=== PATIENT | male | born 1935 | race Caucasian/White ===

== ENCOUNTER 2018-09-22 21:17 | Inpatient (IN) ==
[2018-09-22] MEDS ORDERED: ASPIRIN 325 MG TABLET PO STA (21:52)
[2018-09-22 22:11] LABS: Basophils # 0.1 10*3/uL (0.0-0.2); Basophils % 0.9 % (0.0-0.8); Eosinophils # 0.2 10*3/uL (0.0-0.87); Eosinophils % 2.8 % (0.00-10.9); Hematocrit 39.1 VOL% (42.0-52.0); Hemoglobin 12.6 GM/DL (14.0-18.0); Immature Granulocytes % 0.4 %; Immature Granulocytes Absolute 0.03 #; Lymphocytes # 1.9 10*3/uL (1.4-4.0); Lymphocytes % 28.4 % (21.2-54.2); Mean Corpuscular HGB Conc 32.2 GM/DL (32-36); Mean Corpuscular Hemoglobin 33 PG (27-34); Mean Corpuscular Volume 101.3 FL (87-102); Mean Platelet Volume 10.4 FL (9.6-12.0); Monocytes # 0.5 10*3/uL (0.11-0.8); Monocytes % 7.6 % (1.7-12.7); Neutrophils # 4.1 10*3/uL (1.4-7.4); Neutrophils % 59.9 % (38.7-73.9); Platelet Count 143 T/CUMM (130-400); Red Blood Count 3.86 MC/CUMM (3.8-5.5); Red Cell Distribution Width 14.2 % (9.3-17.3); White Blood Count 6.8 T/CUMM (4-12)
[2018-09-22 22:17] LABS: INR 1.2; PT Patient Result 12.8 SECS; Partial Thromboplastin Time 25.8 SECS (0-40)
[2018-09-22 22:23] LABS: Albumin 2.8 G/DL (3.4-5.0); Bilirubin,Total 0.6 MG/DL (0.2-1.0); Calcium 8.6 MG/DL (8.5-10.1); Osmolality,Calculated 286.3 MOS/KG (273-304); Potassium 3.8 MMOL/L (3.5-5.1); Total Protein 5.7 G/DL (6.4-8.3)
[2018-09-23] MEDS ORDERED: MAGNESIUM SULF RIDER 1 GM in PREMIX 1 EACH IV STA (00:33)
[2018-09-23] MEDS ORDERED: BISACODYL 5 MG TABLET PO PRN (00:40)
[2018-09-23] MEDS ORDERED: MAGNESIUM SULF RIDER 4 GM in PREMIX 1 EACH IV PRN (00:40)
[2018-09-23] MEDS ORDERED: MORPHINE 4 MG/1 ML VIAL IV PRN (00:40)
[2018-09-23] MEDS ORDERED: MAGNESIUM SULF RIDER 2 GM in PREMIX 1 EACH IV PRN (00:40)
[2018-09-23] MEDS ORDERED: NICOTINE 21 MG/24 HR PATCH TRANSDERM PRN (00:40)
[2018-09-23] MEDS ORDERED: ONDANSETRON 4 MG/2 ML VIAL IV PRN (00:40)
[2018-09-23 02:06] LABS: Risk Ratio 3.31
[2018-09-23] MEDS ORDERED: LORazepam 2 MG/1 ML VIAL ONE (03:38)
[2018-09-23] MEDS ORDERED: LORazepam 2 MG/1 ML VIAL IV STA (03:50)
[2018-09-23] MEDS: LEVOTHYROXINE 125 MCG TABLET PO SCH (07:58)
[2018-09-23] MEDS: LORazepam 2 MG/1 ML VIAL IV PRN ×2 (07:58→23:52)
[2018-09-23] MEDS ORDERED: FOSPHENYTOIN 1,000 MG.PE in SODIUM CHLORIDE 0.9% 250 ML IV ONE (12:26)
[2018-09-23] MEDS ORDERED: PHENYTOIN ER 100 MG CAPSULE PO ONE (12:36)
[2018-09-23] MEDS ORDERED: FOSPHENYTOIN 500 MG.PE/10 ML VIAL ONE (12:37)
[2018-09-23] MEDS: PANTOPRAZOLE 40 MG TABLET PO SCH (12:50)
[2018-09-23] MEDS: PHENYTOIN ER 100 MG CAPSULE PO SCH ×2 (12:52→21:09)
[2018-09-23] MEDS: MAGNESIUM SULFATE 1 GM/2 ML VIAL IM SCH ×2 (16:42→21:10)
[2018-09-23] MEDS ORDERED: cloNIDine 0.1 MG TABLET PO PRN (18:19)
[2018-09-23] MEDS ORDERED: METOPROLOL TARTRATE 25 MG TABLET PO SCH (21:00)
[2018-09-23] MEDS: METOPROLOL TARTRATE 50 MG TABLET PO SCH (21:09)
[2018-09-23] MEDS: ATORVASTATIN 40 MG TABLET PO SCH (21:09)
[2018-09-24] MEDS: PHENYTOIN ER 100 MG CAPSULE PO SCH ×4 (05:53→17:05)
[2018-09-24] MEDS: LEVOTHYROXINE 125 MCG TABLET PO SCH ×2 (05:53→06:15)
[2018-09-24 09:43] LABS: Basophils # 0.1 10*3/uL (0.0-0.2); Basophils % 1.2 % (0.0-0.8); Eosinophils # 0.2 10*3/uL (0.0-0.87); Eosinophils % 3.5 % (0.00-10.9); Hematocrit 39.7 VOL% (42.0-52.0); Immature Granulocytes % 0.3 %; Immature Granulocytes Absolute 0.02 #; Lymphocytes # 1.6 10*3/uL (1.4-4.0); Lymphocytes % 23.2 % (21.2-54.2); Mean Corpuscular HGB Conc 32.7 GM/DL (32-36); Mean Corpuscular Hemoglobin 33 PG (27-34); Monocytes # 0.5 10*3/uL (0.11-0.8); Monocytes % 7.8 % (1.7-12.7); Neutrophils # 4.4 10*3/uL (1.4-7.4); Platelet Count 146 T/CUMM (130-400); Red Blood Count 3.93 MC/CUMM (3.8-5.5); Red Cell Distribution Width 14.2 % (9.3-17.3); White Blood Count 6.9 T/CUMM (4-12)
[2018-09-24 10:11] LABS: Calcium 8.2 MG/DL (8.5-10.1); Osmolality,Calculated 281.3 MOS/KG (273-304); Potassium 3.8 MMOL/L (3.5-5.1)
[2018-09-24] MEDS: METOPROLOL TARTRATE 50 MG TABLET PO SCH ×2 (10:50→21:18)
[2018-09-24] MEDS: PANTOPRAZOLE 40 MG TABLET PO SCH (10:51)
[2018-09-24] MEDS: LACOSAMIDE 50 MG TABLET PO SCH (21:17)
[2018-09-24] MEDS: ATORVASTATIN 40 MG TABLET PO SCH (21:18)
[2018-09-25] MEDS: PHENYTOIN ER 100 MG CAPSULE PO SCH ×2 (01:15→09:02)
[2018-09-25 05:18] LABS: Basophils # 0.1 10*3/uL (0.0-0.2); Basophils % 0.7 % (0.0-0.8); Eosinophils # 0.3 10*3/uL (0.0-0.87); Eosinophils % 4.2 % (0.00-10.9); Hematocrit 39.6 VOL% (42.0-52.0); Hemoglobin 12.7 GM/DL (14.0-18.0); Immature Granulocytes % 0.3 %; Immature Granulocytes Absolute 0.02 #; Lymphocytes # 2.1 10*3/uL (1.4-4.0); Lymphocytes % 28.6 % (21.2-54.2); Mean Corpuscular HGB Conc 32.1 GM/DL (32-36); Mean Corpuscular Hemoglobin 33 PG (27-34); Mean Corpuscular Volume 101.5 FL (87-102); Mean Platelet Volume 10.4 FL (9.6-12.0); Monocytes # 0.8 10*3/uL (0.11-0.8); Monocytes % 10.5 % (1.7-12.7); Neutrophils % 55.7 % (38.7-73.9); Platelet Count 158 T/CUMM (130-400); Red Cell Distribution Width 14.3 % (9.3-17.3); White Blood Count 7.2 T/CUMM (4-12)
[2018-09-25 05:24] LABS: Calcium 8.2 MG/DL (8.5-10.1); Osmolality,Calculated 279.4 MOS/KG (273-304); Potassium 3.8 MMOL/L (3.5-5.1)
[2018-09-25] MEDS: LEVOTHYROXINE 125 MCG TABLET PO SCH (07:07)
[2018-09-25 08:27] LABS: Troponin I 0.059 NG/ML (0.00-0.045)
[2018-09-25] MEDS: METOPROLOL TARTRATE 50 MG TABLET PO SCH ×2 (09:01→20:48)
[2018-09-25] MEDS: PANTOPRAZOLE 40 MG TABLET PO SCH (09:02)
[2018-09-25] MEDS: LACOSAMIDE 50 MG TABLET PO SCH (09:02)
[2018-09-25] MEDS: PHENYTOIN 100 MG/2 ML VIAL IV SCH (17:18)
[2018-09-25] MEDS: ATORVASTATIN 40 MG TABLET PO SCH (20:48)
[2018-09-25] MEDS: LACOSAMIDE INJ 150 MG in SODIUM CHLORIDE 0.9% 50 ML IV SCH (20:57)
[2018-09-26] MEDS: PHENYTOIN 100 MG/2 ML VIAL IV SCH ×2 (00:15→08:32)
[2018-09-26 06:10] LABS: Basophils # 0.1 10*3/uL (0.0-0.2); Basophils % 0.8 % (0.0-0.8); Eosinophils # 0.2 10*3/uL (0.0-0.87); Eosinophils % 2.5 % (0.00-10.9); Hematocrit 40.8 VOL% (42.0-52.0); Hemoglobin 13.3 GM/DL (14.0-18.0); Immature Granulocytes % 0.4 %; Immature Granulocytes Absolute 0.03 #; Lymphocytes # 2.1 10*3/uL (1.4-4.0); Lymphocytes % 26.4 % (21.2-54.2); Mean Corpuscular HGB Conc 32.6 GM/DL (32-36); Mean Corpuscular Hemoglobin 33 PG (27-34); Mean Corpuscular Volume 99.8 FL (87-102); Mean Platelet Volume 10.5 FL (9.6-12.0); Monocytes # 0.7 10*3/uL (0.11-0.8); Monocytes % 8.6 % (1.7-12.7); Neutrophils # 4.8 10*3/uL (1.4-7.4); Neutrophils % 61.3 % (38.7-73.9); Platelet Count 167 T/CUMM (130-400); Red Blood Count 4.09 MC/CUMM (3.8-5.5); Red Cell Distribution Width 14.1 % (9.3-17.3); White Blood Count 7.9 T/CUMM (4-12)
[2018-09-26] MEDS: LEVOTHYROXINE 125 MCG TABLET PO SCH (06:21)
[2018-09-26 06:37] LABS: Calcium 8.4 MG/DL (8.5-10.1); Osmolality,Calculated 279.4 MOS/KG (273-304); Potassium 3.8 MMOL/L (3.5-5.1)
[2018-09-26] MEDS: METOPROLOL TARTRATE 50 MG TABLET PO SCH ×2 (09:37→21:17)
[2018-09-26] MEDS: PANTOPRAZOLE 40 MG TABLET PO SCH (09:37)
[2018-09-26] MEDS: LACOSAMIDE INJ 150 MG in SODIUM CHLORIDE 0.9% 50 ML IV SCH ×2 (09:54→21:20)
[2018-09-26] MEDS ORDERED: MAGNESIUM SULF RIDER 2 GM in PREMIX 1 EACH IV ONE (10:00)
[2018-09-26] MEDS ORDERED: POTASSIUM CHLORIDE 20 MEQ TABLET PO PRN (10:43)
[2018-09-26] MEDS ORDERED: VALPROIC ACID INJ 1,000 MG in SODIUM CHLORIDE 0.9% 100 ML IV ONE (16:00)
[2018-09-26] MEDS: PHENYTOIN INJ 100 MG in SODIUM CHLORIDE 0.9% 100 ML IV SCH (18:23)
[2018-09-26] MEDS: ATORVASTATIN 40 MG TABLET PO SCH (21:17)
[2018-09-26] MEDS: VALPROIC ACID INJ 500 MG in SODIUM CHLORIDE 0.9% 100 ML IV SCH (23:55)
[2018-09-27] MEDS: PHENYTOIN INJ 100 MG in SODIUM CHLORIDE 0.9% 100 ML IV SCH ×3 (02:23→21:56)
[2018-09-27 04:50] LABS: Basophils # 0.1 10*3/uL (0.0-0.2); Basophils % 0.9 % (0.0-0.8); Eosinophils # 0.2 10*3/uL (0.0-0.87); Eosinophils % 2.6 % (0.00-10.9); Hematocrit 42.3 VOL% (42.0-52.0); Hemoglobin 13.5 GM/DL (14.0-18.0); Immature Granulocytes % 0.1 %; Immature Granulocytes Absolute 0.01 #; Lymphocytes # 2.3 10*3/uL (1.4-4.0); Lymphocytes % 32.4 % (21.2-54.2); Mean Corpuscular HGB Conc 31.9 GM/DL (32-36); Mean Corpuscular Hemoglobin 32 PG (27-34); Mean Corpuscular Volume 100.7 FL (87-102); Mean Platelet Volume 10.2 FL (9.6-12.0); Monocytes # 0.6 10*3/uL (0.11-0.8); Monocytes % 8.6 % (1.7-12.7); Neutrophils # 3.9 10*3/uL (1.4-7.4); Neutrophils % 55.4 % (38.7-73.9); Platelet Count 156 T/CUMM (130-400); Red Cell Distribution Width 14.2 % (9.3-17.3)
[2018-09-27 05:11] LABS: Calcium 8.4 MG/DL (8.5-10.1); Osmolality,Calculated 285.1 MOS/KG (273-304); Potassium 4.3 MMOL/L (3.5-5.1)
[2018-09-27] MEDS: LEVOTHYROXINE 125 MCG TABLET PO SCH (07:11)
[2018-09-27] MEDS: VALPROIC ACID INJ 500 MG in SODIUM CHLORIDE 0.9% 100 ML IV SCH ×3 (09:01→23:36)
[2018-09-27] MEDS: METOPROLOL TARTRATE 50 MG TABLET PO SCH ×2 (09:06→21:25)
[2018-09-27] MEDS: PANTOPRAZOLE 40 MG TABLET PO SCH (09:06)
[2018-09-27] MEDS: LACOSAMIDE INJ 150 MG in SODIUM CHLORIDE 0.9% 50 ML IV SCH ×2 (10:09→21:16)
[2018-09-27] MEDS: LORazepam 2 MG/1 ML VIAL IV PRN (13:38)
[2018-09-27] MEDS: ATORVASTATIN 40 MG TABLET PO SCH (21:25)
[2018-09-28] MEDS: PHENYTOIN INJ 100 MG in SODIUM CHLORIDE 0.9% 100 ML IV SCH ×3 (04:54→20:54)
[2018-09-28 05:42] LABS: Basophils # 0.1 10*3/uL (0.0-0.2); Eosinophils # 0.3 10*3/uL (0.0-0.87); Eosinophils % 4.1 % (0.00-10.9); Hemoglobin 13.2 GM/DL (14.0-18.0); Immature Granulocytes % 0.1 %; Immature Granulocytes Absolute 0.01 #; Lymphocytes # 1.6 10*3/uL (1.4-4.0); Lymphocytes % 23.7 % (21.2-54.2); Mean Corpuscular HGB Conc 32.2 GM/DL (32-36); Mean Corpuscular Hemoglobin 32 PG (27-34); Mean Corpuscular Volume 99.5 FL (87-102); Mean Platelet Volume 10.1 FL (9.6-12.0); Monocytes # 0.6 10*3/uL (0.11-0.8); Monocytes % 9.1 % (1.7-12.7); Neutrophils # 4.3 10*3/uL (1.4-7.4); Platelet Count 175 T/CUMM (130-400); Red Blood Count 4.12 MC/CUMM (3.8-5.5); Red Cell Distribution Width 14.3 % (9.3-17.3); White Blood Count 6.9 T/CUMM (4-12)
[2018-09-28] MEDS: LEVOTHYROXINE 125 MCG TABLET PO SCH (06:08)
[2018-09-28 06:09] LABS: Calcium 8.4 MG/DL (8.5-10.1); Osmolality,Calculated 284.1 MOS/KG (273-304)
[2018-09-28] MEDS ORDERED: MAGNESIUM SULF RIDER 2 GM in PREMIX 1 EACH IV ONE (09:00)
[2018-09-28] MEDS: VALPROIC ACID INJ 500 MG in SODIUM CHLORIDE 0.9% 100 ML IV SCH ×2 (09:12→16:48)
[2018-09-28] MEDS: LACOSAMIDE INJ 150 MG in SODIUM CHLORIDE 0.9% 50 ML IV SCH ×2 (09:13→21:57)
[2018-09-28] MEDS: METOPROLOL TARTRATE 50 MG TABLET PO SCH ×2 (09:13→20:55)
[2018-09-28] MEDS: PANTOPRAZOLE 40 MG TABLET PO SCH (09:13)
[2018-09-28] MEDS: LORazepam 2 MG/1 ML VIAL IV PRN (12:23)
[2018-09-28] MEDS: PHENobarbital 30 MG TABLET PO SCH (20:54)
[2018-09-28] MEDS: ATORVASTATIN 40 MG TABLET PO SCH (20:55)
[2018-09-29] MEDS: VALPROIC ACID INJ 500 MG in SODIUM CHLORIDE 0.9% 100 ML IV SCH ×4 (00:20→23:36)
[2018-09-29] MEDS: PHENYTOIN INJ 100 MG in SODIUM CHLORIDE 0.9% 100 ML IV SCH ×3 (05:13→21:54)
[2018-09-29] MEDS: LEVOTHYROXINE 125 MCG TABLET PO SCH (06:31)
[2018-09-29] MEDS: PHENobarbital 30 MG TABLET PO SCH ×2 (08:28→21:20)
[2018-09-29] MEDS: PANTOPRAZOLE 40 MG TABLET PO SCH (08:28)
[2018-09-29] MEDS: METOPROLOL TARTRATE 50 MG TABLET PO SCH ×2 (08:28→21:20)
[2018-09-29] MEDS: LACOSAMIDE INJ 150 MG in SODIUM CHLORIDE 0.9% 50 ML IV SCH ×2 (08:35→21:17)
[2018-09-29] MEDS: ACETAMINOPHEN 325 MG TABLET PO PRN (21:20)
[2018-09-29] MEDS: ATORVASTATIN 40 MG TABLET PO SCH (21:20)
[2018-09-30] MEDS: PHENYTOIN INJ 100 MG in SODIUM CHLORIDE 0.9% 100 ML IV SCH ×3 (06:33→20:46)
[2018-09-30] MEDS: LEVOTHYROXINE 125 MCG TABLET PO SCH (06:34)
[2018-09-30] MEDS: PHENobarbital 30 MG TABLET PO SCH ×2 (08:25→20:27)
[2018-09-30] MEDS: METOPROLOL TARTRATE 50 MG TABLET PO SCH ×2 (08:25→20:27)
[2018-09-30] MEDS: VALPROIC ACID INJ 500 MG in SODIUM CHLORIDE 0.9% 100 ML IV SCH ×3 (08:25→17:28)
[2018-09-30] MEDS: PANTOPRAZOLE 40 MG TABLET PO SCH (08:25)
[2018-09-30 08:49] LABS: Basophils # 0.1 10*3/uL (0.0-0.2); Basophils % 0.7 % (0.0-0.8); Eosinophils # 0.3 10*3/uL (0.0-0.87); Eosinophils % 3.8 % (0.00-10.9); Hematocrit 42.8 VOL% (42.0-52.0); Immature Granulocytes % 0.4 %; Immature Granulocytes Absolute 0.03 #; Lymphocytes # 1.5 10*3/uL (1.4-4.0); Lymphocytes % 20.4 % (21.2-54.2); Mean Corpuscular HGB Conc 32.7 GM/DL (32-36); Mean Corpuscular Hemoglobin 33 PG (27-34); Mean Corpuscular Volume 99.8 FL (87-102); Mean Platelet Volume 9.8 FL (9.6-12.0); Monocytes # 0.7 10*3/uL (0.11-0.8); Monocytes % 9.1 % (1.7-12.7); Neutrophils % 65.6 % (38.7-73.9); Platelet Count 155 T/CUMM (130-400); Red Blood Count 4.29 MC/CUMM (3.8-5.5); Red Cell Distribution Width 14.2 % (9.3-17.3); White Blood Count 7.6 T/CUMM (4-12)
[2018-09-30 09:16] LABS: Calcium 8.3 MG/DL (8.5-10.1); Osmolality,Calculated 285.1 MOS/KG (273-304)
[2018-09-30] MEDS: LACOSAMIDE INJ 150 MG in SODIUM CHLORIDE 0.9% 50 ML IV SCH ×2 (10:32→20:11)
[2018-09-30] MEDS: ACETAMINOPHEN 325 MG TABLET PO PRN (14:42)
[2018-09-30] MEDS: ATORVASTATIN 40 MG TABLET PO SCH (20:27)
[2018-10-01] MEDS: VALPROIC ACID INJ 500 MG in SODIUM CHLORIDE 0.9% 100 ML IV SCH ×3 (00:13→16:47)
[2018-10-01] MEDS: PHENYTOIN INJ 100 MG in SODIUM CHLORIDE 0.9% 100 ML IV SCH ×3 (05:24→20:30)
[2018-10-01 05:31] LABS: Basophils # 0.1 10*3/uL (0.0-0.2); Eosinophils # 0.3 10*3/uL (0.0-0.87); Eosinophils % 5.1 % (0.00-10.9); Hematocrit 40.3 VOL% (42.0-52.0); Hemoglobin 13.1 GM/DL (14.0-18.0); Immature Granulocytes % 0.2 %; Immature Granulocytes Absolute 0.01 #; Lymphocytes # 1.7 10*3/uL (1.4-4.0); Lymphocytes % 27.4 % (21.2-54.2); Mean Corpuscular HGB Conc 32.5 GM/DL (32-36); Mean Corpuscular Hemoglobin 33 PG (27-34); Mean Corpuscular Volume 100.5 FL (87-102); Mean Platelet Volume 10.1 FL (9.6-12.0); Monocytes # 0.6 10*3/uL (0.11-0.8); Monocytes % 8.9 % (1.7-12.7); Neutrophils # 3.6 10*3/uL (1.4-7.4); Neutrophils % 57.4 % (38.7-73.9); Platelet Count 147 T/CUMM (130-400); Red Blood Count 4.01 MC/CUMM (3.8-5.5); Red Cell Distribution Width 14.1 % (9.3-17.3); White Blood Count 6.3 T/CUMM (4-12)
[2018-10-01 06:08] LABS: Calcium 8.3 MG/DL (8.5-10.1); Potassium 3.9 MMOL/L (3.5-5.1)
[2018-10-01] MEDS: PANTOPRAZOLE 40 MG TABLET PO SCH (08:24)
[2018-10-01] MEDS: PHENobarbital 30 MG TABLET PO SCH ×3 (08:28→21:43)
[2018-10-01] MEDS: LACOSAMIDE INJ 150 MG in SODIUM CHLORIDE 0.9% 50 ML IV SCH ×2 (09:42→21:39)
[2018-10-01] MEDS: LEVOTHYROXINE 125 MCG TABLET PO SCH (09:47)
[2018-10-01] MEDS: METOPROLOL TARTRATE 50 MG TABLET PO SCH ×2 (09:47→21:43)
[2018-10-01] MEDS: MAGNESIUM OXIDE 400 MG TABLET PO SCH (09:50)
[2018-10-01] MEDS: ATORVASTATIN 40 MG TABLET PO SCH (21:43)
[2018-10-02] MEDS: VALPROIC ACID INJ 500 MG in SODIUM CHLORIDE 0.9% 100 ML IV SCH ×2 (00:48→08:33)
[2018-10-02] MEDS: ACETAMINOPHEN 325 MG TABLET PO PRN (03:45)
[2018-10-02] MEDS: PHENYTOIN INJ 100 MG in SODIUM CHLORIDE 0.9% 100 ML IV SCH ×2 (04:57→13:32)
[2018-10-02 06:22] LABS: Calcium 8.3 MG/DL (8.5-10.1); Osmolality,Calculated 282.3 MOS/KG (273-304); Potassium 4.3 MMOL/L (3.5-5.1)
[2018-10-02] MEDS: MAGNESIUM OXIDE 400 MG TABLET PO SCH (08:33)
[2018-10-02] MEDS: PANTOPRAZOLE 40 MG TABLET PO SCH (08:33)
[2018-10-02] MEDS: METOPROLOL TARTRATE 50 MG TABLET PO SCH (08:34)
[2018-10-02] MEDS: PHENobarbital 30 MG TABLET PO SCH (08:34)
[2018-10-02] MEDS ORDERED: MAGNESIUM SULF RIDER 2 GM in PREMIX 1 EACH IV ONE (09:00)
[2018-10-02 11:40] VITALS: BP 130/73
[2018-10-02] MEDS: LACOSAMIDE INJ 150 MG in SODIUM CHLORIDE 0.9% 50 ML IV SCH (11:50)
[2018-10-02] MEDS: LEVOTHYROXINE 125 MCG TABLET PO SCH (11:50)
== END 2018-10-02 14:45 | DRG 101 ==
LOC: EDBD → EDUNIT# → N.ED 21:17 → N.EDINP 21:17 → SUATTDRO 09-23 00:40 → N.2E 09-23 15:53 → SUATTDRO 09-26 15:39
PROVIDERS: ADMIT Internal Medicine; ATTEND Internal Medicine

== ENCOUNTER 2018-10-08 12:38 | Inpatient (IN) ==
[2018-10-08 14:17] LABS: Basophils # 0.1 10*3/uL (0.0-0.2); Basophils % 0.7 % (0.0-0.8); Eosinophils # 0.2 10*3/uL (0.0-0.87); Eosinophils % 1.7 % (0.00-10.9); Hematocrit 44.2 VOL% (42.0-52.0); Hemoglobin 14.1 GM/DL (14.0-18.0); Immature Granulocytes % 0.8 %; Immature Granulocytes Absolute 0.08 #; Lymphocytes # 1.1 10*3/uL (1.4-4.0); Lymphocytes % 10.4 % (21.2-54.2); Mean Corpuscular HGB Conc 31.9 GM/DL (32-36); Mean Corpuscular Hemoglobin 32 PG (27-34); Mean Corpuscular Volume 100.9 FL (87-102); Mean Platelet Volume 10.5 FL (9.6-12.0); Monocytes # 1.6 10*3/uL (0.11-0.8); Monocytes % 15.4 % (1.7-12.7); Neutrophils # 7.4 10*3/uL (1.4-7.4); Platelet Count 209 T/CUMM (130-400); Red Blood Count 4.38 MC/CUMM (3.8-5.5); Red Cell Distribution Width 14.6 % (9.3-17.3); White Blood Count 10.4 T/CUMM (4-12)
[2018-10-08 14:45] LABS: Albumin 2.6 G/DL (3.4-5.0); Bilirubin,Total 0.7 MG/DL (0.2-1.0); Calcium 8.6 MG/DL (8.5-10.1); Osmolality,Calculated 276.8 MOS/KG (273-304); Potassium 4.3 MMOL/L (3.5-5.1); Total Protein 6.3 G/DL (6.4-8.3)
[2018-10-08 14:48] LABS: Phenytoin (Dilantin) 4.4 UG/ML (10-20)
[2018-10-08] MEDS ORDERED: PIPERACILLIN/TAZOBACTAM 3,375 MG in SODIUM CHLORIDE 0.9% 100 ML IV STA (16:17)
[2018-10-08] MEDS ORDERED: ALBUTEROL 2.5 MG/3 ML NEB RESP TX PRN (16:52)
[2018-10-08] MEDS ORDERED: ONDANSETRON 4 MG/2 ML VIAL IV PRN (16:52)
[2018-10-08] MEDS ORDERED: ALUMINUM/MAGNES/SIMETH MAX STR 30 ML UDCUP PO PRN (16:56)
[2018-10-08] MEDS ORDERED: traMADol 50 MG TABLET PO PRN (16:56)
[2018-10-08] MEDS ORDERED: GLUCAGON 1 MG VIAL IM PRN (16:56)
[2018-10-08] MEDS ORDERED: DEXTROSE 50% 25 GM/50 ML VIAL IV PRN (16:56)
[2018-10-08] MEDS ORDERED: ONDANSETRON 4 MG TABLET PO PRN (16:56)
[2018-10-08] MEDS ORDERED: MAGNESIUM HYDROXIDE SUSP 30 ML UDCUP PO PRN (16:56)
[2018-10-08] MEDS ORDERED: ACETAMINOPHEN 325 MG TABLET PO PRN (16:56)
[2018-10-08] MEDS: SODIUM CHLORIDE 0.9% 1,000 ML IV SCH ×2 (17:15→23:40)
[2018-10-08 18:53] LABS: Amorphous Crystals,Urine Occasional /HPF (Few); Apearance,Urine CLOUDY (Clear); Bacteria,Urine Many /HPF (Few); Bilirubin,Urine Negative (Negative); Blood, Urine Small mg/dL (Negative); Glucose,Urine (UA) Negative (Negative); Ketones,Urine 5 mg/dL (Negative); Mucus,Urine Occasional /LPF (Occasional); Nitrite,Urine Negative (Negative); Protein,Urine 30 MG/DL; RBC,Urine 61 /HPF (0-4); Urine Color Amber (Yellow); Urine Specific Gravity 1.018 (1.001-1.035); WBC,Urine 706 /HPF (0-6)
[2018-10-08 19:50] VITALS: BP 125/87
[2018-10-08] MEDS: INSULIN REGULAR 100 UNIT/ML SUBCUT SCH (20:45)
[2018-10-08] MEDS: PHENYTOIN 100 MG/4 ML UDCUP PO SCH (20:45)
[2018-10-08] MEDS: VALPROIC ACID 250 MG/5 ML UDCUP PO SCH (20:45)
[2018-10-08] MEDS: PHENobarbital 30 MG TABLET PO SCH (20:46)
[2018-10-08] MEDS: METOPROLOL TARTRATE 50 MG TABLET PO SCH (20:46)
[2018-10-08] MEDS ORDERED: ATORVASTATIN 40 MG TABLET PO SCH (21:00)
[2018-10-08] MEDS ORDERED: FEXOFENADINE 180 MG TABLET PO SCH (21:00)
[2018-10-08] MEDS: PIPERACILLIN/TAZOBACTAM 3,375 MG in SODIUM CHLORIDE 0.9% 100 ML IV SCH (23:33)
[2018-10-09] MEDS: PIPERACILLIN/TAZOBACTAM 3,375 MG in SODIUM CHLORIDE 0.9% 100 ML IV SCH (05:24)
[2018-10-09] MEDS: SODIUM CHLORIDE 0.9% 1,000 ML IV SCH ×2 (06:00→11:38)
[2018-10-09] MEDS ORDERED: LEVOTHYROXINE 125 MCG TABLET PO SCH (07:00)
[2018-10-09 07:04] LABS: Basophils # 0.1 10*3/uL (0.0-0.2); Basophils % 0.8 % (0.0-0.8); Eosinophils # 0.3 10*3/uL (0.0-0.87); Eosinophils % 2.7 % (0.00-10.9); Hematocrit 40.9 VOL% (42.0-52.0); Hemoglobin 13.6 GM/DL (14.0-18.0); Immature Granulocytes % 0.6 %; Immature Granulocytes Absolute 0.06 #; Lymphocytes # 1.4 10*3/uL (1.4-4.0); Mean Corpuscular HGB Conc 33.3 GM/DL (32-36); Mean Corpuscular Hemoglobin 33 PG (27-34); Mean Corpuscular Volume 99.3 FL (87-102); Mean Platelet Volume 10.5 FL (9.6-12.0); Monocytes # 1.9 10*3/uL (0.11-0.8); Monocytes % 17.6 % (1.7-12.7); Neutrophils # 7.1 10*3/uL (1.4-7.4); Neutrophils % 65.3 % (38.7-73.9); Platelet Count 204 T/CUMM (130-400); Red Blood Count 4.12 MC/CUMM (3.8-5.5); Red Cell Distribution Width 14.6 % (9.3-17.3); White Blood Count 10.9 T/CUMM (4-12)
[2018-10-09 07:25] LABS: Eosinophils 4 % (0-10); Hypochromasia 1+; Lymphocytes 13 % (20-55); Platelet Estimate Adequate; Segmented Neutrophils 64 % (50-85); Total Cells Counted 100
[2018-10-09 07:37] LABS: Calcium 8.2 MG/DL (8.5-10.1); Osmolality,Calculated 276.7 MOS/KG (273-304); Potassium 4.1 MMOL/L (3.5-5.1)
[2018-10-09] MEDS: INSULIN REGULAR 100 UNIT/ML SUBCUT SCH ×2 (08:39→11:09)
[2018-10-09] MEDS ORDERED: MAGNESIUM OXIDE 400 MG TABLET PO SCH (09:00)
[2018-10-09] MEDS ORDERED: LANSOPRAZOLE ODT 30 MG TABLET PO SCH (09:00)
[2018-10-09] MEDS ORDERED: MONTELUKAST 10 MG TABLET PO SCH (09:00)
[2018-10-09] MEDS: VALPROIC ACID 250 MG/5 ML UDCUP PO SCH (09:45)
[2018-10-09] MEDS: PHENYTOIN 100 MG/4 ML UDCUP PO SCH ×2 (09:45→14:35)
[2018-10-09] MEDS: METOPROLOL TARTRATE 50 MG TABLET PO SCH (09:47)
[2018-10-09] MEDS: PHENobarbital 30 MG TABLET PO SCH (09:48)
[2018-10-09] MEDS ORDERED: PIPERACILLIN/TAZOBACTAM 3,375 MG in SODIUM CHLORIDE 0.9% 100 ML IV SCH (13:00)
[2018-10-09] MEDS ORDERED: PHENobarbital 30 MG TABLET PO SCH (21:00)
== END 2018-10-09 16:05 | disposition hospice, home (50) | DRG 178 ==
LOC: EDUNIT# → N.ED 12:38 → SUATTDRO 16:52 → N.EDINP 16:52 → N.CC 19:37
PROVIDERS: ADMIT Internal Medicine; ATTEND Hospitalist